=== PATIENT | male | born 1970 | race Caucasian/White ===

== ENCOUNTER 2017-10-18 15:02 | Emergency (ER) | payer OTHER ==
[~2017-10-18] VITALS: Ht 185.4 cm; Wt 102.0 kg
[~2017-10-18 15:02] MED LIST: LANTUSP SQ; LISI-363 PO; METF-324 PO; NOVOLOGP2 SQ; glucometer; lancets; syringes; test strips
[2017-10-18 15:04] VITALS: BP 193/109; PULSE 100; RESP 26; TEMP 98.2; O2SAT 97
[2017-10-18] MEDS ORDERED: METF1000 PO (15:27)
[2017-10-18] MEDS ORDERED: SIMV40TA PO (15:27)
[2017-10-18] MEDS ORDERED: VITA2000 PO (15:27)
[2017-10-18] MEDS ORDERED: LOSA50TA PO (15:27)
[2017-10-18] MEDS ORDERED: MULT-65 PO (15:27)
[2017-10-18] MEDS ORDERED: ALBI1INJ SQ (15:27)
[2017-10-18] MEDS ORDERED: ASPI-516 CHEW (15:27)
[2017-10-18] MEDS ORDERED: EMPA1TAB3 PO (15:29)
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
[2017-10-18] MEDS ORDERED: MORPHINE SULFATE 4 MG/ML INJ IM ONE (15:30)
[2017-10-18] MEDS ORDERED: ONDANSETRON ODT 4 MG TAB PO ONE (15:30)
[2017-10-18] MEDS ORDERED: INSU1INJ14 SQ (16:10)
[2017-10-18] MEDS ORDERED: HYDROmorphone HCL PF 2 MG/ML VIAL IV PUSH ONE (16:30)
[2017-10-18 16:35] VITALS: BP 144/97; PULSE 86; RESP 18; TEMP 98.6; O2SAT 97
[2017-10-18] MEDS ORDERED: HYDR-3288 PO (16:38)
== END 2017-10-18 17:23 | disposition home or self-care (01) ==
LOC: PHED 15:02
DX: M25.562 Pain in left knee (principal); G89.18 Other acute postprocedural pain; I10 Essential (primary) hypertension; E11.9 Type 2 diabetes mellitus without complications
CPT/HCPCS: 96372; 96374; 99284; J1170; J2270